=== PATIENT | female | born 1975 | race Caucasian/White ===

== ENCOUNTER → 2018-02-11 | Outpatient (CLI) | payer SELFPAY | END | disposition home or self-care (01) | LOC: RAD 13:18 | DX: R22.42 Localized swelling, mass and lump, left lower limb (principal) | CPT/HCPCS: 93971 ==

== ENCOUNTER → 2018-02-21 | Outpatient (CLI) | payer SELFPAY | END | disposition home or self-care (01) | LOC: MRI 11:57 → RAD 13:30 | DX: M71.22 Synovial cyst of popliteal space [Baker], left knee (principal); M25.462 Effusion, left knee | CPT/HCPCS: 73721 ==